=== PATIENT | female | born 1960 | race Caucasian/White ===

== ENCOUNTER 2023-09-06 10:59 | Inpatient (IN) | payer SELFPAY ==
[2023-09-06 12:28] LABS: #Eosinphils 0.1 thou/uL (0.0-0.7); #Monocytes 0.7 thou/uL (0.11-0.59); #Neutrophils 9.8 thou/uL (1.40-6.50); %Basophils 0.2 % (0.0-1.0); %Eosinophils 0.8 % (0.0-10.0); %Lymphocytes 18.3 % (21.0-51.0); %Monocytes 5.1 % (0.0-10.0); Hematocrit 40.3 % (36.0-47.0); Hemoglobin 13.7 g/dL (12.0-16.0); Mean Corpuscular Hemoglobin 31.1 pg (27.0-31.0); Mean Corpuscular Volume 91.6 fl (78.0-98.0); Mean Platelet Volume 8.9 fL (7.4-10.4); Platelet Count 378 10x3/uL (130-400); RBC Distribution Width 13.2 % (11.5-14.5)
[2023-09-06 12:41] LABS: ALT (SGPT) 13 U/L (8-55); AST (SGOT) 18 U/L (5-34); Albumin 4.7 g/dL (3.4-4.8); Alkaline Phosphatase 114 U/L (40-110); Anion Gap 15 mmol/L (10-20); BUN (Urea Nitrogen) 16 mg/dL (9.8-20.1); Bilirubin, Total 0.4 mg/dL (0.2-1.2); Calc. Creatinine Clearance 0 mL/min (70-130); Carbon Dioxide 22 mmol/L (23-31); Chloride 107 mmol/L (98-107); Estimated GFR 87; Globulin 3.1 g/dL (2.4-3.5); Glucose 114 mg/dL (80-115); Potassium 4.3 mmol/L (3.5-5.1); Protein, Total 7.8 g/dL (5.8-8.1); Sodium 140 mmol/L (136-145)
[2023-09-06 12:43] LABS: INR-International Normal Ratio 0.9; PTT 25.6 sec (22.9-36.1); Prothrombin Time 12.4 sec (12.0-14.7)
[2023-09-06] MEDS ORDERED: Ondansetron PF 4 MG/2 ML Vial ONE (12:44)
[2023-09-06] MEDS ORDERED: Morphine 4 MG/ML VIAL ONE (12:44)
[2023-09-06] MEDS ORDERED: hydrALAZINE 20 MG/ML VIAL SLOW IVP PRN ×2 (13:37→21:34)
[2023-09-06 13:50] LABS: Bacteria/HPF None Seen HPF (None Seen); Bilirubin Negative (Negative); Blood, Urine Negative (Negative); CAUTI Indications for Culture Alt mental st,lethar; Clarity Clear (Clear); Glucose, Urine (Dipstick) Normal (Negative); Ketone, Urine Negative (Negative); Leukocyte Negative Leu/uL (Negative); Nitrite Negative (Negative); Protein, Urine (Dipstick) Negative (Neg-Trace); RBC/HPF 0-3 HPF (0-3); Specific Gravity, Urine 1.025 (1.002-1.036); Squamous Epithelial 0-3 HPF (0-3); Urobilinogen Normal mg/dL (Less than 2); WBC/HPF 0-3 HPF (0-3)
[2023-09-06 14:06] LABS: Urine Culture Reflex No No
[2023-09-06 17:01] VITALS: BMI 34.1
[2023-09-06] MEDS: Morphine 2 MG/ML VIAL SLOW IVP PRN ×2 (17:33→22:11)
[2023-09-06] MEDS: FLU VACC QS2023-24(6MOS UP)/PF 60 MCG/0.5 ML SYRINGE IM ONE (22:03)
[2023-09-06] MEDS: Atorvastatin Calcium 40 MG TAB PO SCH ×2 (22:11→23:01)
[2023-09-07] MEDS ORDERED: Acetaminophen 325 MG TAB PO PRN (08:06)
[2023-09-07] MEDS: Aspirin 325 mg Enteric Coated Tablet PO SCH (08:56)
[2023-09-07] MEDS: Enoxaparin 40 MG (0.4 mL) SYRINGE SC SCH (08:59)
[2023-09-07] MEDS ORDERED: Enoxaparin 40 MG (0.4 mL) SYRINGE SC SCH (09:00)
[2023-09-07] MEDS ORDERED: Aspirin 325 mg Enteric Coated Tablet PO SCH (09:00)
[2023-09-07] MEDS: Famotidine 20 MG TAB PO SCH (09:01)
[2023-09-08 05:23] LABS: Cardiac Risk 4.8 (Less than 4.5)
[2023-09-08] MEDS: Aspirin 81 mg Enteric Coated Tablet PO SCH (08:53)
[2023-09-08 12:07] VITALS: TEMP 98.2
[2023-09-08 12:10] VITALS: BP 138/81
[2023-09-09] MEDS ORDERED: FLU VACC QS2023-24(6MOS UP)/PF 60 MCG/0.5 ML SYRINGE IM ONE (09:00)
== END 2023-09-08 13:38 | disposition home or self-care (01) | DRG 65 ==
LOC: ERS 10:59 → 2SE 13:23 → ERS 15:36
PROVIDERS: ADMIT Internal Medicine; ATTEND Internal Medicine
DX: I63.81 Other cerebral infarction due to occlusion or stenosis of small artery (principal); S42.211A Unspecified displaced fracture of surgical neck of right humerus, initial encounter for closed fracture; W18.30XA Fall on same level, unspecified, initial encounter; I10 Essential (primary) hypertension; F17.210 Nicotine dependence, cigarettes, uncomplicated; Z79.82 Long term (current) use of aspirin; Z79.899 Other long term (current) drug therapy; S00.31XA Abrasion of nose, initial encounter
CPT/HCPCS: 36415; 70450; 70551; 71045; 72125; 80053; 80061; 81001; 85025; 85610; 85730; 93306; 93880; 96374; 96375; J1650; J2270; J2272; J2405